=== PATIENT | male | born 1990 | race Caucasian/White ===

== ENCOUNTER 2017-10-16 14:35 | Day surgery (SDC) | payer OTHER ==
[~2017-10-16] VITALS: Ht 180.3 cm; Wt 89.0 kg
[2017-10-16 14:52] VITALS: BP 128/58; PULSE 66; TEMP 98.1
[2017-10-16 18:30] VITALS: BP 112/62; PULSE 56; TEMP 97.1
[2017-10-16 18:35] VITALS: BP 106/56; PULSE 52
== END 2017-10-16 19:15 | disposition home or self-care (01) ==
LOC: SDCO 14:35 → MEDICAL 18:48 → SDCO 19:15
DX: N35.9 Urethral stricture, unspecified (principal); F17.210 Nicotine dependence, cigarettes, uncomplicated
CPT/HCPCS: OP; J0690; J1100; J1885; J2405; J2704; J3010; J7120